=== PATIENT | male | born 1990 | race American Indian/Alaskan Native ===

== ENCOUNTER 2018-11-14 18:40 | Emergency (ER) | payer OTHER ==
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
[2018-11-14] MEDS ORDERED: IBUPROFEN PO ONE (22:25)
[2018-11-14 23:16] VITALS: BP 126/86
== END 2018-11-14 23:17 | disposition home or self-care (01) ==
LOC: ED 18:40
DX: S39.012A Strain of muscle, fascia and tendon of lower back, initial encounter (principal); V49.49XA Driver injured in collision with other motor vehicles in traffic accident, initial encounter; Y93.89 Activity, other specified; Y92.89 Other specified places as the place of occurrence of the external cause; Y99.8 Other external cause status
CPT/HCPCS: 72070